=== PATIENT | female | born 1965 | race Caucasian/White ===

== ENCOUNTER 2016-09-18 10:31 | Day surgery (SDC) | payer OTHER ==
--- NOTE | ~2016-09-18 | EGD ---
EGD REPORT [facility] [address] [address] NAME: EDISON TORRES : [birth year] STATUS : REG [facility] PAT#: [id number] AGE: 51 ADM/REG DATE : 09/18/16 MR#: [id number] REPORT SERV DATE: 09/18/16 DICTATED BY: ANJEL SALAS DATE: 09/18/16 REPORT STATUS : Draft [facility]: [facility] DATE: 09/18/16 Endoscopy Center Patient Name: Edison Torres Date of : 1965 Attending MD: ANJEL SALAS MD Procedure Date No Time: 09/18/2016 Procedure: Upper GI endoscopy Indications: Dysphagia, Esophageal reflux, Diarrhea Referring MD: Lou Vázquez Medicines: Monitored Anesthesia Care Complications: No immediate complications. Procedure: Pre-Anesthesia Assessment: - ASA Grade Assessment: III - A patient with severe systemic disease. After obtaining informed consent, the endoscope was passed under direct vision. Throughout the procedure, the patient's blood pressure, pulse, and oxygen saturations were monitored continuously. The GIF [id number] was introduced through the mouth, and advanced to the second part of duodenum. The upper GI endoscopy was accomplished without difficulty. The patient tolerated the procedure well. Findings: No endoscopic abnormality was evident in the esophagus to explain the patient's complaint of dysphagia. It was decided, however, to proceed with dilation of the entire esophagus. A guidewire was placed and the scope was withdrawn. Dilation was performed with a Savary dilator with mild resistance at 45 Fr. Localized moderate inflammation characterized by congestion (edema) and erythema was found in the gastric antrum. Biopsies were taken with a cold forceps for histology. The cardia and gastric fundus were normal on retroflexion. The duodenal bulb and 2nd part of the duodenum were normal. Biopsies were taken with a cold forceps for histology. The Z-line was irregular and was found at the gastroesophageal junction. Biopsies were taken with a cold forceps for histology. Impression: - No endoscopic esophageal abnormality to explain patient's dysphagia. Esophagus dilated. Dilated. - Gastritis. Biopsied. - Normal duodenal bulb and 2nd part of the duodenum. Biopsied. Recommendation: - Patient has a contact number available for EGD REPORT [address] [address] NAME: EDISON TORRES : [birth year] STATUS : REG [facility] PAT#: [id number] AGE: 51 ADM/REG DATE : 09/18/16 MR#: [id number] REPORT SERV DATE: 09/18/16 DICTATED BY: ANJEL SALAS DATE: 09/18/16 REPORT STATUS : Draft TRANSCRIBED BY: [employer] DATE: 09/18/16 emergencies. The signs and symptoms of potential delayed complications were discussed with the patient. Return to normal activities tomorrow. Written discharge instructions were provided to the patient. - Regular diet. - Continue present medications. - Repeat the upper endoscopy PRN for retreatment. - Await pathology results. - Follow an antireflux regimen. Procedure Code(s): --- Professional --- 65790, Esophagogastroduodenoscopy, flexible, transoral; with insertion of guide wire followed by passage of dilator(s) through esophagus over guide wire 04759, Esophagogastroduodenoscopy, flexible, transoral; with biopsy, single or multiple Diagnosis Code(s): --- Professional --- R13.10, Dysphagia, unspecified K29.70, Gastritis, unspecified, without bleeding K21.9, Gastro-esophageal reflux disease without esophagitis R19.7, Diarrhea, unspecified CPT copyright 2013 [employer]. All rights reserved. The codes documented in this report are preliminary and upon bias cutting machine operator vertical review may be revised to meet current compliance requirements. ANJEL SALAS MD 09/18/2016 12:37 PM This report has been signed electronically. Number of Addenda: 0 Note Initiated On: 09/18/2016 12:10 PM Scope Withdrawal Time 0 hours 0 minutes 0 seconds [address] [place] [address]
--- NOTE | ~2016-09-18 | EGD ---
EGD REPORT [facility] [address] [address] NAME: EDISON TORRES : [birth year] STATUS : REG [facility] PAT#: [id number] AGE: 51 ADM/REG DATE : 09/18/16 MR#: [id number] REPORT SERV DATE: 09/18/16 DICTATED BY: ANJEL SALAS DATE: 09/18/16 REPORT STATUS : Draft [facility]ED [facility]: [facility] DATE: 09/18/16 Endoscopy Center Patient Name: Edison Torres Date of : 1965 Attending MD: ANJEL SALAS MD Procedure Date No Time: 09/18/2016 Procedure: Colonoscopy Indications: Clinically significant diarrhea of unexplained origin Referring MD: Lou Vázquez Medicines: Monitored Anesthesia Care Complications: No immediate complications. Procedure: Pre-Anesthesia Assessment: - ASA Grade Assessment: III - A patient with severe systemic disease. After I obtained informed consent, the scope was passed under direct vision. Throughout the procedure, the patient's blood pressure, pulse, and oxygen saturations were monitored continuously. The CF [id number] was introduced through the anus and advanced to the cecum, identified by appendiceal orifice and ileocecal valve. The colonoscopy was performed with moderate difficulty due to significant looping. Successful completion of the procedure was aided by applying abdominal pressure. The patient tolerated the procedure well. The quality of the bowel preparation was adequate. Findings: The digital rectal exam was normal. Pertinent negatives include no palpable rectal lesions. Hemorrhoids were found during retroflexion and were mild. The ascending colon appeared normal. Biopsies were taken with a cold forceps for evaluation of microscopic colitis. The sigmoid colon appeared normal. Biopsies were taken with a cold forceps for evaluation of microscopic colitis. Impression: - Hemorrhoids. - The ascending colon is normal. Biopsied. - The sigmoid colon is normal. Biopsied. Recommendation: - Patient has a contact number available for emergencies. The signs and symptoms of potential delayed complications were discussed with the patient. Return to normal activities tomorrow. Written discharge instructions were provided to the patient. - Regular diet. EGD REPORT [facility] [address] [place]. [address] NAME: EDISON TORRES : [birth year] STATUS : REG [facility]#: [id number] AGE: 51 ADM/REG DATE : 09/18/16 MR#: [id number] REPORT SERV DATE: 09/18/16 DICTATED BY: ANJEL SALAS DATE: 09/18/16 REPORT STATUS : Draft TRANSCRIBED BY: [employer] DATE: 09/18/16 - Continue present medications. - Repeat colonoscopy in 10 years for screening purposes. - Return to GI clinic in 4 weeks. Procedure Code(s): --- Professional --- 71163, Colonoscopy, flexible, proximal to splenic flexure; with biopsy, single or multiple Diagnosis Code(s): --- Professional --- K64.9, Unspecified hemorrhoids R19.7, Diarrhea, unspecified CPT copyright 2013 [employer]. All rights reserved. The codes documented in this report are preliminary and upon silver holloware assembler review may be revised to meet current compliance requirements. ANJEL SALAS MD 09/18/2016 12:55 PM This report has been signed electronically. Number of Addenda: 0 Note Initiated On: 09/18/2016 12:07 PM Scope Withdrawal Time 0 hours 8 minutes 9 seconds [address] [id number]
[~2016-09-18 10:31] MED LIST: COZ50 PO; DIAM250B PO; HYDROCHLOROT12.5 MG PO; POTASSIUM PO; PROZAC40 MG PO; ZANTAC 150 PO
== END 2016-09-18 23:59 | disposition home or self-care (01) ==
LOC: DMU 10:31
PROVIDERS: Internal Medicine Gastroenterology
PROC: 0DB98ZX Excision of Duodenum, Via Natural or Artificial Opening Endoscopic, Diagnostic (ICD-10-PCS; 2016-09-18)
PROC: 0DBK8ZZ Excision of Ascending Colon, Via Natural or Artificial Opening Endoscopic (ICD-10-PCS; 2016-09-18)
PROC: 0DBN8ZZ Excision of Sigmoid Colon, Via Natural or Artificial Opening Endoscopic (ICD-10-PCS; 2016-09-18)
PROC: 0D758ZZ Dilation of Esophagus, Via Natural or Artificial Opening Endoscopic (ICD-10-PCS; principal; 2016-09-18 13:00)
PROC: 0DB68ZX Excision of Stomach, Via Natural or Artificial Opening Endoscopic, Diagnostic (ICD-10-PCS; 2016-09-18 13:00)
PROC: 0DB48ZX Excision of Esophagogastric Junction, Via Natural or Artificial Opening Endoscopic, Diagnostic (ICD-10-PCS; 2016-09-18 13:00)
DX: K29.80 Duodenitis without bleeding (principal); K64.9 Unspecified hemorrhoids; K21.9 Gastro-esophageal reflux disease without esophagitis; I10 Essential (primary) hypertension; F41.9 Anxiety disorder, unspecified; F32.9 Major depressive disorder, single episode, unspecified; H91.90 Unspecified hearing loss, unspecified ear; H26.9 Unspecified cataract; E66.9 Obesity, unspecified; Z68.41 Body mass index [BMI] 40.0-44.9, adult; Z79.899 Other long term (current) drug therapy; Z87.891 Personal history of nicotine dependence; Z98.51 Tubal ligation status; Z90.710 Acquired absence of both cervix and uterus; Z98.2 Presence of cerebrospinal fluid drainage device; Z98.890 Other specified postprocedural states
CPT/HCPCS: 88305